=== PATIENT | male | born 1935 | race Asian ===

== ENCOUNTER 2018-05-22 06:09 | Day surgery (SDC) | payer MEDICARE ==
[~2018-05-22] VITALS: Ht 175.3 cm; Wt 72.6 kg
[~2018-05-22 06:09] MED LIST: Proparacaine 0.5% Opth Soln 15ml RIGHT EYE SCH
[2018-05-22] MEDS ORDERED: Midazolam 2mg/2ml Inj ONE ×2 (06:10)
[2018-05-22] MEDS ORDERED: NS Irrig 1000ml ONE (06:10)
[2018-05-22] MEDS ORDERED: Sterile Water Irrig 1000ml IRRIG ONE (06:10)
[2018-05-22] MEDS ORDERED: LR 1000ml ONE (06:10)
[2018-05-22] MEDS ORDERED: fentaNYL 100 mcg/2 mL IV ONE ×2 (06:10)
[2018-05-22] MEDS: Tropicamide 1% Opth 15ml Soln RIGHT EYE SCH ×3 (06:45→07:19)
[2018-05-22] MEDS: Cyclopentolate 1% Opth Sol 2ml RIGHT EYE SCH ×3 (06:45→07:19)
[2018-05-22] MEDS: Phenylephrine 2.5% Op 2ml Soln RIGHT EYE SCH ×3 (06:45→07:19)
--- NOTE | 2018-05-22 06:50 | Anethesia Preoperative Eval ---
Anesthesia Pre-op PMH/ROS General Date of Evaluation: May 22, 2018 Time of Evaluation: 06:49 Anesthesiologist: lewis ASA Score: ASA 3 Mallampati Score Class I : Soft palate, uvula, fauces, pillars visible Class II: Soft palate, uvula, fauces visible Class III: Soft palate, base of uvula visible Class IV: Only hard plate visible Mallampati Classification: Class II Surgeon: valorie Diagnosis: epiretinal membrane right eye Surgical Procedure: pars plana vitrectomy, membrane peel right eye Anesthesia History: none Social History: smoking - nonsmoker Family History: no anesthesia problems Allergies: Coded Allergies: No Known Allergies (Unverified , 05/21/18) Medications: see eMAR Patient NPO?: Yes Past Medical History Cardiovascular: Reports: other - hypercholesterolemia HEENT: Reports: cataract (L), cataract (R) Anesthesia Pre-op Phys. Exam Physician Exam Last Vital Signs Date Time Temp Pulse Resp B/P (MAP) Pulse Ox O2 Delivery O2 Flow Rate FiO2 05/22/18 07:04 97.7 79 20 130/81 96 Room Air Constitutional: NAD Neurologic: CN 2-12 intact Cardiovascular: RRR Respiratory: CTA Gastrointestinal: S/NT/ND Airway Exam Mallampati Score: Class II MO: limited Neck: flexible TMD: 2fb ROM: limited Anesthesia Pre-op A/P Labs Labs Test 05/22/18 06:50 White Blood Count 5.6 K/UL (4.8-10.8) Red Blood Count 4.80 M/UL (4.70-6.10) Hemoglobin 14.9 G/DL (14.2-18.0) Hematocrit 44.4 % (42.0-52.0) Mean Corpuscular Volume 92 FL (80-99) Mean Corpuscular Hemoglobin 31.0 PG (27.0-31.0) Mean Corpuscular Hemoglobin Concent 33.5 G/DL (32.0-36.0) Red Cell Distribution Width 11.8 % (11.6-14.8) Platelet Count 244 K/UL (150-450) Mean Platelet Volume 5.2 FL (6.5-10.1) Neutrophils (%) (Auto) 42.8 % (45.0-75.0) Lymphocytes (%) (Auto) 37.7 % (20.0-45.0) Monocytes (%) (Auto) 10.6 % (1.0-10.0) Eosinophils (%) (Auto) 6.9 % (0.0-3.0) Basophils (%) (Auto) 2.1 % (0.0-2.0) Prothrombin Time 10.6 SEC (9.30-11.50) Prothromb Time International Ratio 1.0 (0.9-1.1) Activated Partial Thromboplast Time 29 SEC (23-33) Sodium Level 140 MMOL/L (136-145) Potassium Level 3.7 MMOL/L (3.5-5.1) Chloride Level 107 MMOL/L (98-107) Carbon Dioxide Level 24 MMOL/L (21-32) Anion Gap 9 mmol/L (5-15) Blood Urea Nitrogen 17 mg/dL (7-18) Creatinine 0.8 MG/DL (0.55-1.30) Estimat Glomerular Filtration Rate mL/min (>60) Glucose Level 94 MG/DL (74-106) Calcium Level 9.1 MG/DL (8.5-10.1) Risk Assessment & Plan Assessment: asa3 Plan: mac Status Change Before Surgery: No Pre-Antibiotics Drug: Ana Luisa Mast MD May 22, 2018 06:50
[2018-05-22] MEDS ORDERED: fentaNYL 100 mcg/2 mL IV PRN (07:00)
[2018-05-22] MEDS ORDERED: Midazolam 2mg/2ml Inj IVP PRN (07:00)
[2018-05-22] MEDS ORDERED: Atropine Sulfate 0.4mg/ml inj IVP PRN (07:00)
[2018-05-22] MEDS ORDERED: DiphenhydrAMINE 50mg/ml Inj IVP PRN (07:00)
[2018-05-22 07:04] VITALS: BP 130/81
[2018-05-22] MEDS ORDERED: Lidocaine 2% MPF 5ml Vial INJ ONE (07:06)
[2018-05-22] MEDS ORDERED: EPINEPHrine 1mg/1ml Amp ONE (07:06)
[2018-05-22] MEDS ORDERED: Goniotaire 2.5% Opth Soln - 15ml ONE (07:06)
[2018-05-22] MEDS ORDERED: Maxitrol Opth Oint 3.5gm ONE ×2 (07:06→07:17)
[2018-05-22] MEDS ORDERED: BSS 15ml BTL ONE (07:07)
[2018-05-22] MEDS ORDERED: Acetylcholine Injection (OR) ONE (07:07)
[2018-05-22] MEDS ORDERED: BSS 500ml btl ONE (07:07)
[2018-05-22] MEDS ORDERED: Dexamethasone 4mg/ml vial ONE (07:07)
[2018-05-22] MEDS ORDERED: Tetracaine 0.5% Opth 4ml Soln ONE (07:07)
[2018-05-22] MEDS ORDERED: Bupivacaine 0.75% 30ml vial INJ ONE (07:07)
[2018-05-22] MEDS ORDERED: Sodium Hyaluronate 10 mg/ml 0.85ml ONE (07:14)
[2018-05-22] MEDS ORDERED: MULTIVITAMINS1 EAC2 ORAL (07:18)
[2018-05-22] MEDS ORDERED: LIPITOR10 MG ORAL (07:18)
[2018-05-22 07:25] LABS: ANION GAP 9 mmol/L (5-15); BASOPHILS % (AUTO) 2.1 % (0.0-2.0); BLOOD UREA NITROGEN 17 mg/dL (7-18); CALCIUM 9.1 MG/DL (8.5-10.1); CARBON DIOXIDE 24 MMOL/L (21-32); CHLORIDE 107 MMOL/L (98-107); CREATININE 0.8 MG/DL (0.55-1.30); EOSINOPHILS % (AUTO) 6.9 % (0.0-3.0); HEMATOCRIT 44.4 % (42.0-52.0); HEMOGLOBIN 14.9 G/DL (14.2-18.0); LYMPHOCYTES % (AUTO) 37.7 % (20.0-45.0); MEAN CORPUSCULAR VOLUME 92 FL (80-99); MONOCYTES % (AUTO) 10.6 % (1.0-10.0); NEUTROPHILS % (AUTO) 42.8 % (45.0-75.0); PLATELET COUNT 244 K/UL (150-450); POTASSIUM 3.7 MMOL/L (3.5-5.1); RED CELL DISTRIBUTION WIDTH 11.8 % (11.6-14.8); SODIUM 140 MMOL/L (136-145); WHITE BLOOD COUNT 5.6 K/UL (4.8-10.8)
[2018-05-22] MEDS ORDERED: Kenalog-40 1ml Vial ONE (07:26)
[2018-05-22] MEDS ORDERED: Povidone-Iodine 5% opth solution ONE (08:10)
--- NOTE | 2018-05-22 08:29 | Pre-Procedure Note/Attestation ---
Pre-Procedure Note/Attestation Complete Prior to Procedure Planned Procedure: right Procedure Narrative: PPV OD Indications for Procedure Pre-Operative Diagnosis: ERM OD Attestation I attest that I discussed the nature of the procedure; its benefits; risks and complications; and alternatives (and the risks and benefits of such alternatives ), prior to the procedure, with the patient (or the patient's legal solar sales representative and assessor). I attest that, if there was a reasonable possibility of needing a blood transfusion, the patient (or the patient's legal solar sales representative and assessor) was given the [facility] standardized written summary, pursuant to the Cristóbal Atiya Blood Safety Act ([place] Health and Safety Code # 1645, as amended). I attest that I re-evaluated the patient just prior to the surgery and that there has been no change in the patient's H&P, except as documented below: Vivek Bui M.D., MD May 22, 2018 08:29
[2018-05-22] MEDS ORDERED: Indocyanine Green 25mg Inj INJ ONE (08:30)
--- NOTE | 2018-05-22 08:42 | Operative Note - PDOC ---
Operative Note Operative Note Chief Complaint: Blurred vision OD Pre-op Diagnosis: ERM OD Procedure: PPV/MP/AFE OD Post-op Diagnosis: Same Surgeon: Ramya Anesthesia: local Specimen: none Complications: none Condition: stable Estimated Blood Loss: minimal Drains: none Implant(s) used?: No Indications for Procedure Indications for the procedure: The patient has vision loss due ERM and presents today for surgery after review of the risks, benefits, alternative and signing informed consent into the medical chart. Description of Procedure Procedure performed: The patient was met in the pre-operative area where informed consent was reviewed. The operative eye was verified, marked and dilated. The patient was transferred to the operative suite, where cardiopulmonary monitoring was established and peribulbar anesthetic was administered without complications. The eye was prepped and draped in sterile ophthalmic fashion. Under microscope visualization the 23 gauge infusion line was placed 4 millimeters inferotemporally. After visualization of the tip in the vitreous cavity, the infusion line was turned on. The superotemporal and superonasal cannulas were placed. Under BIOM visualization, peripheral and core vitrectomy was performed. The ERM was peeled then the ILM was peeled with ICG staining under contact lens view with forceps. Then further peripheral vitrectomy was performed. Inspection of the periphery revealed no iatrogenic breaks. Prophylactic barrier laser was applied to the sclerotomies due to tags. Air fluid exchange was performed and the cannulas were removed without leakage. The eye maintained normal intraocular pressure. Subconjunctival vancomycin and dexamethasone were administered. The lid speculum was removed. The eye was cleaned of prep and drape. Atropine drop and Maxitrol ointment was applied. A pressure patch was placed. The patient was turned over to the anesthesia team and transferred in stable condition to the PACU. Vivek Bui M.D., MD May 22, 2018 08:42
[2018-05-22 09:19] VITALS: BP 149/89
[2018-05-22 09:24] VITALS: BP 127/80
[2018-05-22 09:29] VITALS: BP 126/68
[2018-05-22 09:40] VITALS: BP 127/78
[2018-05-22 09:55] VITALS: BP 132/81
--- NOTE | 2018-05-22 10:00 | Pre-op HX & Phy Repo 2 SIG ---
DATE OF ADMISSION: 05/22/2018 REASON FOR EVALUATION: I was asked by Dr. Vivek Morrison to see this 83-year-old male who is going for elective surgery on the right eye. The patient has retinal membrane, right eye. The patient was evaluated. Chart was reviewed. PAST MEDICAL HISTORY/REVIEW OF SYSTEMS: Denies history of diabetes. No history of hypertension or stroke. Denies history of respiratory problem. No chest pain or palpitation. No history of GI bleeding. No heartburn. No hepatitis. Denies history of renal insufficiency or prostate problem. 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 The patient denies history of tremors or seizures. SURGICAL HISTORY: Right eye cataract extraction in February 2018. FAMILY HISTORY: Mother and father of old age 80s. ALLERGIES: Not known. PRESENT MEDICATIONS: Include multivitamins, vitamin E, calcium supplement, and Lipitor 10 mg daily. HABITS: Denies history of smoking. Alcohol occasionally. No street drugs. PHYSICAL EXAMINATION: GENERAL: Alert, well-developed, well-nourished male in his 80s, in no acute distress. VITAL SIGNS: Blood pressure 130/81, temperature 97.7, pulse 81, respirations 20, and O2 saturation 96% on room air. SKIN: Clear and warm. No diaphoresis. No cyanosis. No rashes or ulcers. LYMPH NODES: Not enlarged. HEENT: Head normocephalic. Ears clear, no discharge. Eyes, full description per Dr. Morrison. Mouth, clear and moist. He is wearing removable partial dentures. NECK: Supple. No jugular vein distention. Carotids artery +2. Trachea midline. CHEST: No deformity or asymmetry. LUNGS: Clear to auscultation and percussion. HEART: Sinus rhythm. No ectopy. No murmur. No S3, S4. ABDOMEN: Soft, benign. Liver and spleen not enlarged. No rebound. EXTREMITIES: No change in his knee. No edema. No varicose vein. No calf tenderness. GENITOURINARY TRACT: Normal for gender. Denies dysuria. CVA nontender. NERVOUS SYSTEM: No tremor. No nystagmus. 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 Lab work, white blood cells 5.6, hemoglobin 14.9, hematocrit 44.4%. Chemistry, sodium 140, potassium 3.7, BUN 17, creatinine 0.8, blood sugar 94, calcium 9.1. PT and INR pending. IMPRESSION: 1. Intraretinal membrane, right eye. 2. Septal IN by EKG. 3. Hyperlipidemia. 4. Degenerative joint disease of knee. The patient did not eat or drink from 7 p.m. yesterday. PLAN: Pars plana vitrectomy, membrane peel, right eye per Dr. Vivek Morrison. CONCLUSION: The patient is an 83-year-old male. Vital signs stable. The patient denies history of heart attack. No chest pain or palpitation. Even on electrocardiogram, the patient has a fascicular block and septal IN of age undetermined. Laboratory in normal limits. The patient did not eat or drink from 7 p.m. yesterday. The patient's condition optimized for surgery. Thank you very much, Dr. Morrison, for privilege to participate in presurgical care of this interesting patient. Cristina Corona M.D. DR: Virgilio JOB#: [id number] CC:
--- NOTE | 2018-05-23 17:46 | Cardiology Report ---
APPROVED REPORT EKG Measurement Heart [id number] Normal sinus rhythm Left anterior fascicular block Septal infarct, age undetermined Abnormal ECG
== END 2018-05-22 11:00 | disposition home or self-care (01) ==
LOC: SUR 06:09
DX: H35.371 Puckering of macula, right eye (principal); I25.2 Old myocardial infarction; E78.5 Hyperlipidemia, unspecified; E78.00 Pure hypercholesterolemia, unspecified; M17.10 Unilateral primary osteoarthritis, unspecified knee
CPT/HCPCS: 36415; 67042; 80048; 85025; 85610; 85730; 93005; J1100; J2250; J3010; J3301; J3370; J3490; 94003; 94150